=== PATIENT | female | born 1970 | race African-American/Black ===

== ENCOUNTER 2021-03-28 11:08 | Emergency (ER) | payer OTHER ==
[2021-03-28 11:15] VITALS: BP 163/97; PULSE 77; TEMP 99.3; BMI 25.4
[2021-03-28] MEDS ORDERED: SODIUM CHLORIDE 0.9% 500 ML INFUS.BAG IV ONE (11:23)
[2021-03-28 12:17] LABS: RDW 15.7 % (11.6-15.6); WHITE BLOOD COUNT 4.7 K/mm3 (4.0-10.8)
[2021-03-28 12:17] LABS: HCG,QUALITATIVE URINE Negative
[2021-03-28 12:21] LABS: BASO % 4.7 % (0-2.0); EOS % 1.1 % (0-4.5); HEMATOCRIT 37.1 % (32.4-45.2); HEMOGLOBIN 12.3 GM/dl (10.7-15.3); LYMPH % 40.5 % (8-40); MCH 30.5 pg (25.7-33.7); MCHC 33.1 g/dl (32.0-36.0); MEAN CELL VOLUME 92.1 fl (80-96); MONO % 3.5 % (3.8-10.2); NEUT % 50.2 % (42.8-82.8); PLATELET COUNT 291 10^3/uL (134-434); RBC 4.03 M/mm3 (3.60-5.2)
[2021-03-28 12:23] LABS: ALBUMIN 3.8 g/dl (3.4-5.0); ALK PHOS 80 U/L (45-117); ANION GAP 12 MMOL/L (8-16); BILIRUBIN,TOTAL 0.4 mg/dl (0.2-1); CALCIUM 9.1 mg/dl (8.5-10); CHLORIDE 105 mmol/L (98-107); CO2 22 mmol/L (21-32); CREATININE 1.1 mg/dl (0.55-1.3); GLUCOSE,RANDOM 112 mg/dl (74-106); SGOT/AST 21 U/L (15-37); SGPT/ALT 15 U/L (13-61); SODIUM 139 mmol/L (136-145); TOT PROT 7.9 g/dl (6.4-8.2)
[2021-03-28] MEDS ORDERED: POTASSIUM CHLORIDE ORAL LIQUID 20 MEQ/15 ML PO ONE (12:28)
[2021-03-28] MEDS ORDERED: IBUPROFEN 600 MG TABLET (FP) PO ONE ×2 (12:41→12:43)
[2021-03-28] MEDS ORDERED: POTASSIUM CHLORIDE ORAL LIQUID 20 MEQ/15 ML ONE (13:14)
[2021-03-28 13:41] LABS: EPITHELIAL CELLS FEW /hpf
== END 2021-03-28 13:16 | disposition home or self-care (01) ==
LOC: FER 11:08
DX: E87.6 Hypokalemia (principal); R19.7 Diarrhea, unspecified
CPT/HCPCS: 36415; 80053; 81003; 81015; 82550; 82553; 84484; 84703; 85025; 87086; 87186; 93005; 99284-25

== ENCOUNTER 2022-06-29 07:58 | Emergency (ER) | payer OTHER ==
[2022-06-29 08:13] VITALS: BP 152/87; PULSE 77; RESP 18; TEMP 98; BMI 27.4
[2022-06-29] MEDS ORDERED: LIDOCAINE 5% TOPICAL PATCH TP ONE (08:28)
[2022-06-29] MEDS ORDERED: KETOROLAC TROMETHAMINE 30 MG/1 ML VIAL IM ONE (08:28)
[2022-06-29] MEDS ORDERED: diazePAM 5 MG TABLET PO ONE (08:28)
[2022-06-29] MEDS ORDERED: ACETAMINOPHEN 500 MG TABLET (FP) PO ONE (08:28)
[2022-06-29] MEDS ORDERED: LIDOCAINE 5% TOPICAL PATCH ONE (08:45)
[2022-06-29] MEDS ORDERED: ACETAMINOPHEN 325 MG TABLET (FP) ONE (08:45)
[2022-06-29] MEDS ORDERED: KETOROLAC TROMETHAMINE 30 MG/1 ML VIAL ONE (08:45)
[2022-06-29] MEDS ORDERED: diazePAM 5 MG TABLET ONE (08:45)
[2022-06-29] MEDS ORDERED: LIDOCAINE PATCH REMOVAL MC ONE (22:00)
== END 2022-06-29 10:19 | disposition home or self-care (01) ==
LOC: JERFT 07:58
PROC: 3E0233Z Introduction of Anti-inflammatory into Muscle, Percutaneous Approach (ICD-10-PCS; principal; 2022-06-29)
DX: M25.511 Pain in right shoulder (principal); M54.50 Low back pain, unspecified; V53.6XXA Passenger in pick-up truck or van injured in collision with car, pick-up truck or van in traffic accident, initial encounter
CPT/HCPCS: 73030-TC-RT-FY; 99284-25

== ENCOUNTER 2022-07-20 08:05 | Emergency (ER) | payer OTHER ==
[2022-07-20] MEDS ORDERED: ACETAMINOPHEN 325 MG TABLET (FP) PO ONE (08:19)
[2022-07-20] MEDS ORDERED: METHOCARBAMOL 500 MG TABLET PO ONE (08:19)
[2022-07-20] MEDS ORDERED: LIDOCAINE 5% TOPICAL PATCH TP ONE (08:19)
[2022-07-20 08:33] VITALS: BP 146/91; PULSE 66; RESP 18; TEMP 99.1; BMI 27.8
[2022-07-20] MEDS ORDERED: ACETAMINOPHEN 500 MG TABLET (FP) ONE (08:34)
[2022-07-20] MEDS ORDERED: METHOCARBAMOL 500 MG TABLET ONE (08:35)
[2022-07-20] MEDS ORDERED: LIDOCAINE 5% TOPICAL PATCH ONE (08:35)
[2022-07-20] MEDS ORDERED: LIDOCAINE PATCH REMOVAL MC SCH (22:00)
== END 2022-07-20 09:10 | disposition home or self-care (01) ==
LOC: FER 08:05
DX: M54.50 Low back pain, unspecified (principal)
CPT/HCPCS: 99283-25

== ENCOUNTER 2025-02-23 10:16 | Emergency (ER) | payer OTHER ==
[2025-02-23 11:02] VITALS: BP 156/87; PULSE 49; RESP 18; TEMP 98.6; BMI 28.8
[2025-02-23 11:57] LABS: ABSOLUTE IMMATURE GRANULOCYTES 0.01 x10^3/uL (0.0-0.031); BASOPHILS # 0.02 x10^3/uL (0.01-0.08); EOSINOPHIL % 0.9 % (0.7-5.8); EOSINOPHILS # 0.04 x10^3/uL (0.04-0.36); MCHC 32.3 g/dl (32.2-35.5); MEAN CELL VOLUME 88.1 fl (79.4-94.8); MEAN PLT VOLUME 9.8 fl (9.4-12.3); MONOCYTE # 0.35 x10^3/uL (0.24-0.86); MONOCYTE % 7.9 % (4.7-12.5); RDW 16.3 % (12.3-16.6)
[2025-02-23 12:05] LABS: ALK PHOS 125 U/L (45-117); CO2 29 mmol/L (21-32); CREATININE 0.9 mg/dl (0.6-1.3); GLUCOSE,RANDOM 91 mg/dl (74-106); SGOT/AST 17 U/L (15-37); SGPT/ALT 10 U/L (7-52); TOT PROT 9.0 g/dl (6.4-8.2)
[2025-02-23 13:19] LABS: HIV INTERPRETATION NEGATIVE (NEGATIVE)
[2025-02-23 13:21] LABS: HCV DIAGNOSTIC IN-HOUSE W/RFLX NON-REACTIVE (NONREACTIVE)
== END 2025-02-23 13:02 | disposition home or self-care (01) ==
LOC: FER 10:16
DX: R53.81 Other malaise (principal); R35.0 Frequency of micturition; R41.89 Other symptoms and signs involving cognitive functions and awareness; R94.31 Abnormal electrocardiogram [ECG] [EKG]
CPT/HCPCS: 36415; 80053; 81003; 84443; 84484; 85025; 86803; 87389; 93005; 99284-25